=== PATIENT | female | born 1940 | race African-American/Black ===

== ENCOUNTER 2018-10-08 18:03 | Inpatient (IN) ==
[2018-10-08] MEDS ORDERED: NON-FORMULARY MEDICATION 1 EACH EACH (Ipratropium/Albuterol Sulfate [Combivent Respimat 20 IH PRN (18:26)
[2018-10-08] MEDS ORDERED: Benzonatate 100 MG CAPSULE PO PRN (18:26)
[2018-10-08] MEDS ORDERED: Ondansetron ODT 4 MG TAB.RAPDIS SL PRN (18:26)
[2018-10-08] MEDS ORDERED: Ipratropium 1 PUFF INHALER IH PRN (18:26)
[2018-10-08] MEDS ORDERED: NON-FORMULARY MEDICATION 1 EACH EACH (Alendronate Sodium [Fosamax] 70 MG) PO SCH (18:30)
[2018-10-08] MEDS: Apixaban 5 MG TABLET PO SCH (21:28)
[2018-10-08] MEDS: rOPINIRole 1 MG TABLET PO SCH (21:28)
[2018-10-08] MEDS: Gabapentin 300 MG CAPSULE PO SCH (21:28)
[2018-10-08] MEDS: Cefdinir 300 MG CAPSULE PO SCH (21:28)
[2018-10-08] MEDS: *HR* OxyCODONE/APAP 5/325 TABLET PO PRN (21:53)
[2018-10-08] MEDS: Nystatin POWDER 30 GM BOTTLE TP SCH (21:53)
[2018-10-08] MEDS: Gentamicin Oint 15 GM TUBE TP SCH (22:05)
[2018-10-09 06:14] LABS: Basophils % 0.1 %; Eosinophils % 0.1 %; Hematocrit 31.1 % (35.3-44.9); Lymphocytes # 1.8 K/mcL (0.6-4.6); Lymphocytes % 23.4 %; Mean Corpuscular HGB Conc 32.2 g/dL (31.6-35.5); Mean Corpuscular Hemoglobin 34.7 pg (28.0-33.3); Mean Platelet Volume 9.8 fL (9.4-12.4); Monocytes # 0.8 K/mcL (0.0-1.3); Monocytes % 9.8 %; Neutrophils # 5.1 K/mcL (1.6-8.9); Platelet Count 378 K/mcL (140-400); Red Blood Count 2.88 M/mcL (3.82-4.97); Red Cell Distribution Width 14.7 % (11.5-14.5); Segmented Neutrophils % 65.6 %
[2018-10-09 07:12] LABS: BUN/Creatinine Ratio 25 (6-26); Blood Urea Nitrogen 24 mg/dL (8-23); Calcium 9.2 mg/dL (8.6-10.3); Carbon Dioxide 38 mEq/L (23-29); Chloride 94 mEq/L (98-107); Glucose 102 mg/dL (70-105); Osmolality,Calculated 296 (280-300); Potassium 3.7 mEq/L (3.5-5.1); Sodium 141 mEq/L (136-145); eGFR For Non-African Americans 56 (> 60)
[2018-10-09] MEDS ORDERED: Furosemide 40 MG TABLET PO SCH (08:00)
[2018-10-09] MEDS: Cefdinir 300 MG CAPSULE PO SCH ×2 (08:11→20:18)
[2018-10-09] MEDS: levoFLOXacin 500 MG TABLET PO SCH (08:11)
[2018-10-09] MEDS: Ascorbic Acid 500 MG TABLET PO SCH (08:12)
[2018-10-09] MEDS: Folic Acid 1 MG TABLET PO SCH (08:12)
[2018-10-09] MEDS: Apixaban 5 MG TABLET PO SCH ×2 (08:12→20:18)
[2018-10-09] MEDS: Famotidine 20 MG TABLET PO SCH (08:12)
[2018-10-09] MEDS: Cyanocobalamin (B-12) 1,000 MCG TABLET PO SCH (08:12)
[2018-10-09] MEDS: Multivit/Ca/Min/Fe/FA 1 TAB TABLET PO SCH (08:12)
[2018-10-09] MEDS: Nystatin POWDER 30 GM BOTTLE TP SCH ×3 (08:45→20:19)
[2018-10-09] MEDS: Gentamicin Oint 15 GM TUBE TP SCH (08:46)
[2018-10-09] MEDS: Budesonide/Formoterol 160/4.5 1 PUFF INH IH SCH ×2 (10:11→20:43)
--- NOTE | 2018-10-09 12:19 | Internal Med History&Physical ---
Date of Encounter: 10/09/18 Time of Encounter: 11:30 Assessment and Plan (1) Diastolic heart failure with preserved ejection fraction Current visit: No Status: Chronic BN peptide was elevated at 252 on 09/30/2018. Recheck in a.m. Change from Lasix to Bumex and start Imdur. Continue Coreg and Cozaar. (2) COPD (chronic obstructive pulmonary disease) Current visit: No Status: Chronic Continue inhalers, supplemental oxygen, and use BiPAP as needed. Qualifiers: COPD type: COPD with acute exacerbation Qualified Code(s): J44.1 - Chronic obstructive pulmonary disease with (acute) exacerbation (3) Weakness Current visit: Yes Status: Acute PT and OT evaluations have been ordered. (4) Pulmonary nodules/lesions, multiple Current visit: No Status: Acute Follow-up chest CT scan will be done at a later date to monitor resolution. (5) Anemia Current visit: No Status: Chronic Recheck anemia testing in a.m. Qualifiers: Anemia type: other cause Other causes of anemia: chronic disease, other Qualified Code(s): D63.8 - Anemia in other chronic diseases classified elsewhere (6) Pulmonary embolism Current visit: No Status: Acute Continue Eliquis. Qualifiers: Pulmonary embolism type: unspecified Chronicity: unspecified Acute cor pulmonale presence: without acute cor pulmonale Qualified Code(s): I26.99 - Other pulmonary embolism without acute cor pulmonale (7) Decubitus ulcer of ankle, right, unstageable Current visit: No Status: Acute Continue Levaquin and Omnicef until 10/22/2018 and add lactobacillus. Check zinc level. (8) Macrocytosis Current visit: Yes Status: Acute B12, folate, and TSH levels have recently been checked without significant abnormalities. (9) HTN (hypertension) Current visit: No Status: Chronic Continue Coreg, Lasix, and Cozaar Qualifiers: Hypertension type: essential hypertension Qualified Code(s): I10 - Essential (primary) hypertension Internal Medicine - H&P: HPI Chief complaint: Respiratory failure, HFpEF History of present illness: Ms. Alexander is a 78 year old female who was hospitalized at [facility] September 30-October 08 after presenting with acute respiratory insufficiency. Available records show she had been noncompliant previously with prescribed BiPAP. She was treated for respiratory insufficiency. Right heel ulcer grew multiple organisms and she was started on IV antibiotics. She was discharged to [facility] swing bed for ongoing care needs. Past Med Surg Social Fam HX - Past Medical History Medical history: arthritis, atrial fibrillation, CHF, COPD, DVT, hyperlipidemia, hypertension, osteoporosis, pulmonary embolus, RA, renal disease, other Additional medical history: unspecified lung problem Psychiatric history: no psych history - Past Surgical History Surgical History: non-contributory Additional surgical history: back stimulator, carpal tunnel surgery - Social History Smoking Status: Former smoker Smokeless Tobacco Status: No Alcohol use: none Drug use: none - Family History Father Adopted: No Family Member Ethnicity: Non- Living Status: Hx Family Cardiac Disorders: Yes Hx Family Respiratory Disorders: Yes Hx Family Cancer: Yes Hx Family GI Disorders: Yes Hx Family Endocrine Disorder: Yes Hx Family Neuromuscular Disorders: No Hx Family Neurologic Disorders: Yes Hx Family HEENT Disorders: No Hx Family Autoimmune Disorders: Yes (arthritis) Mother Hx Family Cardiac Disorders: Yes (HTN) Internal Medicine - H&P: Meds Budesonide/Formoterol 160/4.5 [Symbicort 160/4.5] 2 puff IH QID PRN 08/11/16 [History] Folic Acid 1 mg PO 0800 08/11/16 [History] Ranitidine HCl [Acid Supervisor Paper Machine] 150 [place] [address]08/11/16 [History] rOPINIRole [Requip] 1 mg PO 199908/11/16 [History] Ipratropium/Albuterol Sulfate [Combivent Respimat 20-100 Mcg] 1 puff IH Q4H PRN 02/20/18 [History] Carvedilol [Coreg] 25 mg PO 799,199904/20/18 [History] Albuterol Sulfate [Proair Hfa] 2 puff IH Q6H PRN 05/16/18 [History] Docusate [Colace] 100 mg PO 0800 05/16/18 [History] Benzonatate [Tessalon] 100 mg PO TID PRN capsule 08/25/18 [Rx] GuaiFENesin ER [Mucinex] 600 mg PO BID PRN tbbp.12hr 08/25/18 [Rx] Ipratropium [ATROVENT Inhaler] 2 puff IH B0SESOW PRN inhaler 08/25/18 [Rx] Acetaminophen [Tylenol] 500 mg PO Q6HR PRN 08/30/18 [History] Alendronate Sodium [Fosamax] 70 mg PO 08/30/18 [History] Potassium Chloride [Klor-Con 10] 10 meq PO 0800 09/13/18 [History] Ascorbate Calcium [Vitamin C] 500 mg PO DAILY 09/15/18 [History] Ca/D3/Mag Ox/Zinc/Teradata Developer/Loyd/Bor [Calcium 600-D3 Plus Caplet] 1 tab PO 0800 09/15/18 [History] Losartan Potassium [Cozaar] 100 mg PO 0800 09/15/18 [History] Multivitamin [Daily Multiple Vitamin] 1 each PO 0800 09/15/18 [History] Ondansetron ODT [Zofran ODT] 4 mg SL Q8HR PRN 09/15/18 [History] Apixaban [Eliquis] 5 mg PO 08,199909/30/18 [History] Cyanocobalamin (Vitamin B-12) [Vitamin B-12] 250 mcg PO 0809/30/18 [History] Furosemide [Lasix] 40 mg PO 0800,1600 09/30/18 [History] Gabapentin [Neurontin] 300 mg PO 199909/30/18 [History] Hydrocortisone 2.5% CREAM [Cortaid] 1 applic TP 999,1999 PRN 09/30/18 [History] Quetiapine Fumarate [Seroquel] 25 mg PO 199909/30/18 [History] Cefdinir [Omnicef] 300 mg PO BID 14 Days #28 capsule 10/08/18 [Rx] Nystatin POWDER [Nystop] 1 appl TP TID bottle 10/08/18 [Rx] OxyCODONE/APAP 5/325 [Percocet 5/325 MG] 1 tab PO Q12H PRN 5 Days #10 tablet 10/08/18 [Rx] levoFLOXacin [Levaquin] 750 mg PO DAILY 14 Days #14 tablet 10/08/18 [Rx] Allergy/AdvReac Type Severity Reaction Status Date / [facility] Allergy See Verified 09/15/18 10:22 Comments All Systems PM: A 10-system review of systems was performed and is negative for pertinent findings except as documented above in the HPI. Review of systems: Gen.: Her weight has been stable at approximately 89 kg since April 2018 hosp [facility] ([facility] Cardiovascular: She has history of hypertension and paroxysmal atrial fibrillation. She has history of DVT. Right upper lung and lower lung pulmonary emboli were seen on chest CTA 08/30/2018. She is on Eliquis. Limited echocardiogram 08/31/2018 showed LVEF of 50-55%. Echocardiogram the previous day showed the interventricular septum and posterior wall thickness measurements 1.18 and 1.37 cm respectively. E/A ratio was 0.6. No significant valvular abnormality was seen. There was no evidence of pulmonary hypertension. Respiratory: She smoked from age [age] never up to one pack per day. She has a diagnosis of COPD and wears oxygen at home 30/12 generally. She has chronic r espiratory failure and has been prescribed BiPAP for use at bedtime and when necessary during day time. She has not been compliant with this regimen according to available hospital records. PFTs 04/29/2018 showed FVC 22% predicted, FEV1 20% predicted, and FEV1/FVC 67%. There was significant impro vement in FEV1 and FVC postbronchodilator. She was diagnosed with very severe obstructive lung disease. GI: She has had cholecystectomy. She denies disorders of her liver or exocrine pancreas : She denies hematuria dysuria or kidney stones Neurologic: She denies large distribution strokes or seizures. Endocrine: She denies diabetes thyroid disease or hyperlipidemia Hematology/oncology: She denies internal malignancies. She was unaware she had anemia in the past. Psychiatric: She denies anxiety depression or other mental health issues. Musko skeletal: She has chronic low back pain and has had a stimulator placed. She has DJD. She has had bilateral total hip replacements and left carpal tunnel surgery. She denies gout. She has an unstageable right heel ulcer and is completing antibiotic therapy for infection. - Constitutional Vitals: Temp Pulse Resp BP Pulse Ox 98.0 F 108 18 110/62 93 10/09/18 07:17 10/09/18 11:31 10/09/18 10:12 10/09/18 07:17 10/09/18 11:31 Exam: Gen.: She is a well-developed overweight female resting comfortably in a chair at bedside HEENT: Head is atraumatic and normocephalic. Eyes: EOMI. There is no scleral icterus. Mouth: Mucosa is moist. Neck: Supple and nontender. There is no thyromegaly or adenopathy noted. Heart: Regular without murmurs gallops or ectopics Lungs: No wheezes or crackles are heard. Abdomen: Soft and nontender. No masses or guarding are noted. Extremities: There is no cyanosis or clubbing noted. The right lower leg and foot are wrapped in gauze with a sock in place. I did not remove these. The legs show 1-2+ edema of the anterior shins and dorsum of the feet bilaterally. She has minimal DJD changes of her hands. Neurologic: Mental status: She is talkative and a good historian. Cranial nerves: Smile is symmetric. Forehead wrinkles bilaterally. Tongue protrudes midline. EOMI. Motor: There is no pronator drift. Cerebellar: Finger to nose is intact bilaterally. Skin: Warm and dry Internal Med - H&P Results - Labs CBC & Chem 7: 10/09/18 05:44 10/09/18 05:44 Labs: Short CBC 10/09/18 Range/Units 05:44 WBC 7.8 (4.3-11.1) K/mcL Hgb 10.0 L (11.5-15.4) g/dL Hct 31.1 L (35.3-44.9) % Plt Count 378 (140-400) K/mcL Neutrophils # 5.1 (1.6-8.9) K/mcL BMP 10/09/18 05:44 Sodium 141 Potassium 3.7 Chloride 94 L Carbon Dioxide 38 H BUN 24 H Creatinine 0.96 Glucose 102 Calcium 9.2
[2018-10-09] MEDS: Albuterol 2.5 MG/3 ML NEBULIZER IH PRN ×2 (15:42→20:43)
[2018-10-09] MEDS: Lactobacillus 1 EACH CAP.SPRINK PO SCH (20:18)
[2018-10-09] MEDS: Gabapentin 300 MG CAPSULE PO SCH (20:18)
[2018-10-09] MEDS: rOPINIRole 1 MG TABLET PO SCH (20:18)
[2018-10-09] MEDS: Bumetanide 1 MG TABLET PO SCH (20:18)
[2018-10-09] MEDS: *HR* OxyCODONE/APAP 5/325 TABLET PO PRN (21:26)
[2018-10-10] MEDS: Folic Acid 1 MG TABLET PO SCH (09:21)
[2018-10-10] MEDS: Famotidine 20 MG TABLET PO SCH (09:21)
[2018-10-10] MEDS: Multivit/Ca/Min/Fe/FA 1 TAB TABLET PO SCH (09:21)
[2018-10-10] MEDS: Bumetanide 1 MG TABLET PO SCH ×2 (09:21→20:23)
[2018-10-10] MEDS: levoFLOXacin 500 MG TABLET PO SCH (09:21)
[2018-10-10] MEDS: Cyanocobalamin (B-12) 1,000 MCG TABLET PO SCH (09:22)
[2018-10-10] MEDS: Lactobacillus 1 EACH CAP.SPRINK PO SCH ×2 (09:22→20:23)
[2018-10-10] MEDS: Cefdinir 300 MG CAPSULE PO SCH ×2 (09:22→20:23)
[2018-10-10] MEDS: Ascorbic Acid 500 MG TABLET PO SCH (09:22)
[2018-10-10] MEDS: Apixaban 5 MG TABLET PO SCH ×2 (09:23→20:23)
[2018-10-10] MEDS: *HR* OxyCODONE/APAP 5/325 TABLET PO PRN (09:23)
[2018-10-10] MEDS: Gentamicin Oint 15 GM TUBE TP SCH (09:24)
[2018-10-10] MEDS: Nystatin POWDER 30 GM BOTTLE TP SCH ×3 (09:24→20:25)
[2018-10-10 09:26] LABS: % Iron Saturation 22 % (15-50); Iron 65 mcg/dL (50-170); Transferrin 212 mg/dL (203-362)
[2018-10-10] MEDS: Budesonide/Formoterol 160/4.5 1 PUFF INH IH SCH ×2 (09:43→20:59)
[2018-10-10 09:44] LABS: Ferritin 82 ng/mL (10-120)
[2018-10-10] MEDS: Albuterol 2.5 MG/3 ML NEBULIZER IH PRN ×2 (13:51→20:59)
--- NOTE | 2018-10-10 16:13 | Internal Med Progress Note ---
Date of Encounter: 10/10/18 Time of Encounter: 16:00 - Assessment and plan (1) Diastolic heart failure with preserved ejection fraction Current Visit: No Status: Chronic Assessment and plan: October 10. BN now peptide normal at 93. Continue Bumex, Imdur, Coreg, and Cozaar (2) COPD (chronic obstructive pulmonary disease) Current Visit: No Status: Chronic Assessment and plan: October 10. Continue inhalers, oxygen, and BiPAP. Qualifiers: COPD type: COPD with acute exacerbation Qualified Code(s): J44.1 - Chronic obstructive pulmonary disease with (acute) exacerbation (3) Weakness Current Visit: Yes Status: Acute Assessment and plan: October 10. Continue PT and OT intervention. (4) Pulmonary nodules/lesions, multiple Current Visit: No Status: Acute Assessment and plan: October 10. Chest CTA 08/30/2018 showed multiple scattered nonspecific subcentimeter pulmonary nodules throughout both lungs. Repeat chest CT can be done as an outpatient in 3-6 months. (5) Anemia Current Visit: No Status: Chronic Assessment and plan: October 10. Anemia testing shows iron 65, transferrin saturation 20%, transferrin 212, and ferritin 82. B12 and folate levels in August were above normal range. Continue to monitor CBC periodically. Qualifiers: Anemia type: other cause Other causes of anemia: chronic disease, other Qualified Code(s): D63.8 - Anemia in other chronic diseases classified elsewhere (6) Pulmonary embolism Current Visit: No Status: Acute Assessment and plan: October 10. Continue Eliquis Qualifiers: Pulmonary embolism type: unspecified Chronicity: unspecified Acute cor pulmonale presence: without acute cor pulmonale Qualified Code(s): I26.99 - Other pulmonary embolism without acute cor pulmonale (7) Decubitus ulcer of ankle, right, unstageable Current Visit: No Status: Acute Assessment and plan: October 10. Continue Levaquin and Omnicef with lactobacillus until 10/22/2018. Zinc level is pending (8) Macrocytosis Current Visit: Yes Status: Acute Assessment and plan: October 10. B12 folate and TSH levels unremarkable. Continue to monitor. (9) HTN (hypertension) Current Visit: No Status: Chronic Assessment and plan: October 10. Continue Coreg, Lasix, and Cozaar Qualifiers: Hypertension type: essential hypertension Qualified Code(s): I10 - Essential (primary) hypertension - Subjective Interval history: October 10. She has no new complaints. - Constitutional Vitals: Temp Pulse Resp BP Pulse Ox 96.6 F L 80 14 147/74 97 10/10/18 07:33 10/10/18 07:33 10/10/18 13:51 10/10/18 07:33 10/10/18 13:51 Exam: She is sitting in a chair at bedside resting comfortably. Her feet are elevated. Extremities show trace to 1+ edema bilaterally. She is not dyspneic. I reviewed her medications and lab results. Internal Medicine: Result - Labs CBC & Chem 7: 10/09/18 05:44 10/09/18 05:44 Consult Discharge Plan - Plan Referrals: Frances Almaguer MD [Primary Care Provider] - 1 week
[2018-10-10] MEDS: Gabapentin 300 MG CAPSULE PO SCH (20:23)
[2018-10-10] MEDS: rOPINIRole 1 MG TABLET PO SCH (20:24)
[2018-10-11] MEDS: *HR* OxyCODONE/APAP 5/325 TABLET PO PRN ×2 (05:32→20:55)
[2018-10-11] MEDS: Lactobacillus 1 EACH CAP.SPRINK PO SCH ×2 (10:23→20:54)
[2018-10-11] MEDS: Cefdinir 300 MG CAPSULE PO SCH ×2 (10:23→20:54)
[2018-10-11] MEDS: Bumetanide 1 MG TABLET PO SCH ×2 (10:24→20:54)
[2018-10-11] MEDS: Multivit/Ca/Min/Fe/FA 1 TAB TABLET PO SCH (10:24)
[2018-10-11] MEDS: Cyanocobalamin (B-12) 1,000 MCG TABLET PO SCH (10:24)
[2018-10-11] MEDS: Folic Acid 1 MG TABLET PO SCH (10:24)
[2018-10-11] MEDS: Ascorbic Acid 500 MG TABLET PO SCH (10:24)
[2018-10-11] MEDS: Famotidine 20 MG TABLET PO SCH (10:24)
[2018-10-11] MEDS: Apixaban 5 MG TABLET PO SCH ×2 (10:25→20:55)
[2018-10-11] MEDS: Nystatin POWDER 30 GM BOTTLE TP SCH ×3 (10:25→20:57)
[2018-10-11] MEDS: Gentamicin Oint 15 GM TUBE TP SCH (10:25)
[2018-10-11] MEDS: Budesonide/Formoterol 160/4.5 1 PUFF INH IH SCH ×2 (10:50→22:13)
[2018-10-11] MEDS: Albuterol 2.5 MG/3 ML NEBULIZER IH PRN (10:55)
[2018-10-11] MEDS: levoFLOXacin 500 MG TABLET PO SCH (12:16)
[2018-10-11] MEDS: Mag Hydrox/Al Hydrox/Simeth 30 ML UDC PO PRN (16:57)
[2018-10-11] MEDS: rOPINIRole 1 MG TABLET PO SCH (20:54)
[2018-10-11] MEDS: Gabapentin 300 MG CAPSULE PO SCH (20:55)
[2018-10-12 05:18] LABS: ABG Base Excess 18 mEq/L (-2 to 3); ABG HCO3 47 mEq/L (21-27); ABG Oxygen Saturation 94 % (95-98); ABG PCO2 88 mmHg (35-45); ABG PH 7.33 pH Units (7.32-7.45); ABG PO2 82 mmHg (85-104); ABG TCO2 50 mEq/L (20-26)
[2018-10-12] MEDS: Bumetanide 1 MG TABLET PO SCH ×2 (08:23→21:09)
[2018-10-12] MEDS: Apixaban 5 MG TABLET PO SCH ×2 (08:23→21:19)
[2018-10-12] MEDS: Cefdinir 300 MG CAPSULE PO SCH ×2 (08:23→21:09)
[2018-10-12] MEDS: Cyanocobalamin (B-12) 1,000 MCG TABLET PO SCH (08:23)
[2018-10-12] MEDS: Lactobacillus 1 EACH CAP.SPRINK PO SCH ×2 (08:23→21:09)
[2018-10-12] MEDS: Famotidine 20 MG TABLET PO SCH (08:24)
[2018-10-12] MEDS: Ascorbic Acid 500 MG TABLET PO SCH (08:24)
[2018-10-12] MEDS: Folic Acid 1 MG TABLET PO SCH (08:24)
[2018-10-12] MEDS: Multivit/Ca/Min/Fe/FA 1 TAB TABLET PO SCH (08:24)
[2018-10-12] MEDS: Budesonide/Formoterol 160/4.5 1 PUFF INH IH SCH ×2 (09:33→23:09)
--- NOTE | 2018-10-12 11:50 | Internal Med Progress Note ---
Date of Encounter: 10/12/18 Time of Encounter: 11:30 - Assessment and plan (1) Diastolic heart failure with preserved ejection fraction Current Visit: No Status: Chronic Assessment and plan: October 10. BN now peptide normal at 93. Continue Bumex, Imdur, Coreg, and Cozaar (2) COPD (chronic obstructive pulmonary disease) Current Visit: No Status: Chronic Assessment and plan: October 10. Continue inhalers, oxygen, and BiPAP. October 12. I explained to the family that elevated oxygen could decrease her respiratory drive. Order will be written for saturations to be 89-91%. I reviewed blood gases since February 2018 with 36/37 showing elevated PCO2. The PCO2 levels exceeded 100 approximately 2 weeks ago. I explained to family that worsening respiratory status could potentially result in placement of tracheostomy with ventilator dependency. Qualifiers: COPD type: COPD with acute exacerbation Qualified Code(s): J44.1 - Chronic obstructive pulmonary disease with (acute) exacerbation (3) Weakness Current Visit: Yes Status: Acute Assessment and plan: October 10. Continue PT and OT intervention. (4) Pulmonary nodules/lesions, multiple Current Visit: No Status: Acute Assessment and plan: October 10. Chest CTA 08/30/2018 showed multiple scattered nonspecific subcentimeter pulmonary nodules throughout both lungs. Repeat chest CT can be done as an outpatient in 3-6 months. (5) Anemia Current Visit: No Status: Chronic Assessment and plan: October 10. Anemia testing shows iron 65, transferrin saturation 20%, transferrin 212, and ferritin 82. B12 and folate levels in August were above normal range. Continue to monitor CBC periodically. Qualifiers: Anemia type: other cause Other causes of anemia: chronic disease, other Q ualified Code(s): D63.8 - Anemia in other chronic diseases classified elsewhere (6) Pulmonary embolism Current Visit: No Status: Acute Assessment and plan: October 10. Continue Eliquis Qualifiers: Pulmonary embolism type: unspecified Chronicity: unspecified Acute cor pulmonale presence: without acute cor pulmonale Qualified Code(s): I26.99 - Other pulmonary embolism without acute cor pulmonale (7) Decubitus ulcer of ankle, right, unstageable Current Visit: No Status: Acute Assessment and plan: October 10. Continue Levaquin and Omnicef with lactobacillus until 10/22/2018. Zinc level is pending October 12. The right heel ulcer appears healed. The right posterior lower calf area shows white exudate with no evidence of significant infection or drainage. There is no foul odor detected. Continue Santyl and gentamicin as per wound clinic orders. Family reports a follow-up visit with wound clinic is scheduled on October 14. (8) Macrocytosis Current Visit: Yes Status: Acute Assessment and plan: October 10. B12 folate and TSH levels unremarkable. Continue to monitor. (9) HTN (hypertension) Current Visit: No Status: Chronic Assessment and plan: October 10. Continue Coreg, Lasix, and Cozaar Qualifiers: Hypertension type: essential hypertension Qualified Code(s): I10 - Essential (primary) hypertension - Subjective Interval history: October 10. She has no new complaints. October 12. She has no new complaints. Family reported she had "jerking" over the past 2 days. I was told by nursing staff family was concerned it might be due to Levaquin and/or elevated pCO2. Levaquin was discontinued after review of culture sensitivity from her left heel. I felt was possible that Cedinir would cover the Pseudomonas since the organism was sensitive to cefepime and ceftazidime. ABG was done per family request. - Constitutional Vitals: Temp Pulse Resp BP Pulse Ox 99.9 F H 88 92 134/68 94 10/12/18 06:22 10/12/18 06:22 10/12/18 06:22 10/12/18 06:22 10/12/18 05:33 Exam: She is resting in bed wearing BiPAP. She had a 2-3 second episode of her arms shaking without any other movement to indicate seizures. Within a few seconds after shaking she opened her eyes and talked plainly through the BiPAP mask. She reports she has felt cold earlier but did not feel cold at this time. The right lower leg dressing was removed and the heel Allevyn removed for visualization. I reviewed reviewed her medications and lab results. Internal Medicine: Result - Labs CBC & Chem 7: 10/09/18 05:44 10/09/18 05:44 - ABG Interpretation ABG results: ABG ABG pH 7.33 pH Units (7.32-7.45) 10/12/18 05:12 ABG pCO2 88 mmHg (35-45) H* 10/12/18 05:12 ABG pO2 82 mmHg (85-104) L 10/12/18 05:12 ABG O2 Saturation 94 % (95-98) L 10/12/18 05:12 Consult Discharge Plan - Plan Referrals: Frances Almaguer MD [Primary Care Provider] - 1 week
[2018-10-12] MEDS: Nystatin POWDER 30 GM BOTTLE TP SCH ×3 (12:51→21:19)
[2018-10-12] MEDS: Gentamicin Oint 15 GM TUBE TP SCH (12:51)
[2018-10-12 13:49] LABS: ABG Base Excess 15 mEq/L (-2 to 3); ABG HCO3 45 mEq/L (21-27); ABG Oxygen Saturation 72 % (95-98); ABG PCO2 87 mmHg (35-45); ABG PH 7.33 pH Units (7.32-7.45); ABG PO2 44 mmHg (85-104); ABG TCO2 48 mEq/L (20-26)
[2018-10-12] MEDS: Mag Hydrox/Al Hydrox/Simeth 30 ML UDC PO PRN (21:09)
[2018-10-12] MEDS: rOPINIRole 1 MG TABLET PO SCH (21:09)
[2018-10-12] MEDS: Gabapentin 300 MG CAPSULE PO SCH (21:09)
[2018-10-13 05:13] LABS: ABG Base Excess 17 mEq/L (-2 to 3); ABG HCO3 48 mEq/L (21-27); ABG Oxygen Saturation 91 % (95-98); ABG PCO2 91 mmHg (35-45); ABG PH 7.33 pH Units (7.32-7.45); ABG PO2 70 mmHg (85-104); ABG TCO2 > 50 mEq/L (20-26)
[2018-10-13 06:06] LABS: Basophils # 0.1 K/mcL (0.0-0.2); Basophils % 0.6 %; Eosinophils # 0.1 K/mcL (0.0-0.6); Eosinophils % 0.8 %; Hematocrit 33.6 % (35.3-44.9); Immature Granulocytes % 0.8 % (0-4); Lymphocytes # 2.7 K/mcL (0.6-4.6); Lymphocytes % 34.3 %; Mean Corpuscular HGB Conc 29.8 g/dL (31.6-35.5); Mean Corpuscular Hemoglobin 35.3 pg (28.0-33.3); Mean Corpuscular Volume 118.7 fL (83.0-100.0); Mean Platelet Volume 10.1 fL (9.4-12.4); Monocytes % 12.3 %; Neutrophils # 4.1 K/mcL (1.6-8.9); Platelet Count 277 K/mcL (140-400); Red Blood Count 2.83 M/mcL (3.82-4.97); Red Cell Distribution Width 14.6 % (11.5-14.5); Segmented Neutrophils % 51.2 %
[2018-10-13 06:30] LABS: Albumin 3.3 g/dL (3.5-5.7); Albumin/Globulin Ratio 1.2 (1.1-2.2); Bilirubin,Total 0.3 mg/dL (0.3-1.0); Calcium 9.1 mg/dL (8.6-10.3); Globulin 2.7 g/dL (2.4-3.5); Potassium 4.7 mEq/L (3.5-5.1)
[2018-10-13] MEDS ORDERED: Acetaminophen 325 MG TABLET PO PRN (08:00)
[2018-10-13 08:05] LABS: Anisocytosis 1+ (Not Present); Macrocytosis Present (Not Present); Platelet Estimate Normal (Normal)
[2018-10-13] MEDS: Apixaban 5 MG TABLET PO SCH (08:24)
[2018-10-13] MEDS: Bumetanide 1 MG TABLET PO SCH (08:25)
[2018-10-13] MEDS: Lactobacillus 1 EACH CAP.SPRINK PO SCH (08:26)
[2018-10-13] MEDS: Famotidine 20 MG TABLET PO SCH (08:26)
[2018-10-13] MEDS: Cefdinir 300 MG CAPSULE PO SCH (08:26)
[2018-10-13] MEDS: Multivit/Ca/Min/Fe/FA 1 TAB TABLET PO SCH (08:26)
[2018-10-13] MEDS: Budesonide/Formoterol 160/4.5 1 PUFF INH IH SCH (10:13)
[2018-10-13 11:06] VITALS: BP 111/53
--- NOTE | 2018-10-13 13:40 | Discharge Summary ---
Date of Encounter: 10/13/18 Time of Encounter: 10:00 - Discharge Diagnosis (1) COPD (chronic obstructive pulmonary disease) Priority: Primary Status: Chronic Qualifiers: COPD type: COPD with acute exacerbation Qualified Code(s): J44.1 - Chronic obstructive pulmonary disease with (acute) exacerbation (2) Diastolic heart failure with preserved ejection fraction Priority: Secondary Status: Chronic (3) Weakness Priority: Secondary Status: Acute (4) Pulmonary nodules/lesions, multiple Priority: Secondary Status: Acute (5) Anemia Priority: Secondary Status: Chronic Qualifiers: Anemia type: other cause Other causes of anemia: chronic disease, other Qualified Code(s): D63.8 - Anemia in other chronic diseases classified elsewhere (6) Pulmonary embolism Priority: Secondary Status: Acute Qualifiers: Pulmonary embolism type: unspecified Chronicity: unspecified Acute cor pulmonale presence: without acute cor pulmonale Qualified Code(s): I26.99 - Other pulmonary embolism without acute cor pulmonale (7) Decubitus ulcer of ankle, right, unstageable Priority: Secondary Status: Acute (8) Macrocytosis Priority: Secondary Status: Acute (9) HTN (hypertension) Priority: Secondary Status: Chronic Qualifiers: Hypertension type: essential hypertension Qualified Code(s): I10 - Essential (primary) hypertension Hospital course: Ms. Alexander is a 78 year old female who was hospitalized at [facility] September 30-October 08 after presenting with acute respiratory insufficiency. Available records show she had been noncompliant previously with prescribed BiPAP. She was treated for respiratory insufficiency. Right heel ulcer grew multiple organisms and she was started on IV antibiotics. She was discharged to [facility] swing bed for ongoing care needs. Initial orders were written by the discharging physician at [facility]. I saw her on October 09 and performed the swing bed history and physical. He was changed from Lasix to Bumex. Imdur was started. Coreg and Cozaar were continued. Her BN peptide improved to 93 by 10/10/2018. She continue this regimen during the regular her hospital stay. She developed respiratory insufficiency requiring increasing time on BiPAP. I had long discussions with the family the afternoon of October 12 and the morning of October 13. I told them she would likely benefit from pulmonology reevaluation with consideration for trach placement and home ventilator use. There were in agreement with this and she was transferred [facility] the afternoon of October 13. - Time Spent with Patient Total time spent providing and/or coordinating discharge services: - Discharge Medications Prescriptions: No Action Folic Acid 1 mg PO 0800 rOPINIRole [Requip] 1 mg PO 1999 Ranitidine HCl [Acid Treasury Representative] 150 mg PO 0800 Budesonide/Formoterol 160/4.5 [Symbicort 160/4.5] 2 puff IH QID PRN PRN Reason: Shortness Of Breath Ipratropium/Albuterol Sulfate [Combivent Respimat 20-100 Mcg] 1 puff IH Q4H PRN PRN Reason: Shortness Of Breath Carvedilol [Coreg] 25 mg PO 0800,1999 Albuterol Sulfate [Proair Hfa] 2 puff IH Q6H PRN PRN Reason: Shortness Of Breath Docusate [Colace] 100 mg PO 0800 Ipratropium [ATROVENT Inhaler] 2 puff IH [id number] PRN inhaler PRN Reason: Shortness Of Breath/Wheezing Benzonatate [Tessalon] 100 mg PO TID PRN capsule PRN Reason: Cough GuaiFENesin ER [Mucinex] 600 mg PO BID PRN tbbp.12hr PRN Reason: Congestion Alendronate Sodium [Fosamax] 70 mg PO TH Acetaminophen [Tylenol] 500 mg PO Q6HR PRN PRN Reason: Mild Pain Potassium Chloride [Klor-Con 10] 10 meq PO 0800 Ascorbate Calcium [Vitamin C] 500 mg PO DAILY Ca/D3/Mag Ox/Zinc/Student Teacher/Loyd/Bor [Calcium 600-D3 Plus Caplet] 1 tab PO 0800 Losartan Potassium [Cozaar] 100 mg PO 0800 Multivitamin [Daily Multiple Vitamin] 1 each PO 0800 Ondansetron ODT [Zofran ODT] 4 mg SL Q8HR PRN PRN Reason: Nausea Apixaban [Eliquis] 5 mg PO 0800,1999 Cyanocobalamin (Vitamin B-12) [Vitamin B-12] 250 mcg PO 0800 Furosemide [Lasix] 40 mg PO 0800,1600 Gabapentin [Neurontin] 300 mg PO 1999 Hydrocortisone 2.5% CREAM [Cortaid] 1 applic TP 999,1999 PRN PRN Reason: IRRITATION Quetiapine Fumarate [Seroquel] 25 mg PO 1999 levoFLOXacin [Levaquin] 750 mg PO DAILY 14 Days #14 tablet Cefdinir [Omnicef] 300 mg PO BID 14 Days #28 capsule Nystatin POWDER [Nystop] 1 appl TP TID bottle Home Medications: Budesonide/Formoterol 160/4.5 [Symbicort 160/4.5] 2 puff IH QID PRN 08/11/16 [History] [place]olic [place] 7[address]08/11/16 [History] Ranitidine HCl [Acid Treasury Representative] 150 mg PO 79908/11/16 [History] rOPINIRole [Requip] 1 mg PO 199908/11/16 [History] Ipratropium/Albuterol Sulfate [Combivent Respimat 20-100 Mcg] 1 puff IH Q4H PRN 02/20/18 [History] Carvedilol [Coreg] 25 mg PO 799,199904/20/18 [History] Albuterol Sulfate [Proair Hfa] 2 puff IH Q6H PRN 05/16/18 [History] Docusate [Colace] [place] 79905/16/18 [History] Benzonatate [Tessalon] 100 mg PO TID PRN capsule 08/25/18 [Rx] GuaiFENesin ER [Mucinex] 600 mg PO BID PRN tbbp.12hr 08/25/18 [Rx] Ipratropium [ATROVENT Inhaler] 2 puff IH [id number] PRN inhaler 08/25/18 [Rx] Acetaminophen [Tylenol] 500 mg PO Q6HR PRN 08/30/18 [History] Alendronate Sodium [Fosamax] 70 mg PO TH 08/30/18 [History] Potassium Chloride [Klor-Con 10] 10 meq PO 0800 09/13/18 [History] Ascorbate Calcium [Vitamin C] 500 mg PO DAILY 09/15/18 [History] Ca/D3/Mag Ox/Zinc/Student Teacher/Loyd/Bor [Calcium 600-D3 Plus Caplet] 1 tab PO 0800 09/15/18 [History] Losartan Potassium [Cozaar] 100 mg PO 00 09/15/18 [History] Multivitamin [Daily Multiple Vitamin] 1 each PO 0800 09/15/18 [History] Ondansetron ODT [Zofran ODT] 4 mg SL Q8HR PRN 09/15/18 [History] Apixaban [Eliquis] 5 mg PO 799,199909/30/18 [History] Cyanocobalamin (Vitamin B-12) [Vitamin B-12] 250 mcg PO 0800 09/30/18 [History] Furosemide [Lasix] 40 mg PO 0800,1600 09/30/18 [History] Gabapentin [Neurontin] 300 mg PO 199909/30/18 [History] Hydrocortisone 2.5% CREAM [Cortaid] 1 applic TP 999,1999 PRN 09/30/18 [History] Quetiapine Fumarate [Seroquel] 25 mg PO 199909/30/18 [History] Cefdinir [Omnicef] 300 mg PO BID 14 Days #28 capsule 10/08/18 [Rx] Nystatin POWDER [Nystop] 1 appl TP TID bottle 10/08/18 [Rx] levoFLOXacin [Levaquin] 750 mg PO DAILY 14 Days #14 tablet 10/08/18 [Rx] Allergies/Adverse Reactions: Allergy/AdvReac Type Severity Reaction Status Date / Time amlodipine [From [facility]] Allergy See Verified 09/15/18 10:22 Comments Date of admission: 10/08/18 19:51 Primary care physician: Frances Almaguer Consults: 10/08/18 18:40 Consult to Registered Nurses [CONS] Routine Reason for SW Consult: discharge planning 10/08/18 18:42 Consult to Physical Therapy [CONS] Routine Comment: Evaluate, develop and implement POC Reason for Consult: from e[facility] will need to return at skilled level Does patient have active BEDREST order?: No Is patient medically & hemodynamically stable?: Yes Patient assessed for mobility or mobilized this visit?: Yes OT [Consult to Occupational Therapy] [CONS] Routine Comment: Evaluate, develop and implement POC Reason for Consult: from [facility] will need to return at skilled level Does patient have active BEDREST order?: No Is patient medically & hemodynamically stable?: Yes Patient assessed for mobility or mobilized this visit?: Yes - Constitutional Vitals: Temp Pulse Resp BP Pulse Ox 99.4 F 86 16 111/53 90 10/13/18 11:05 10/13/18 11:05 10/13/18 11:05 10/13/18 11:05 10/13/18 11:05 - Patient Status Disposition: Transfer Other - Discharge Instructions
== END 2018-10-13 14:06 | disposition other institution (70) | DRG 945 ==
LOC: INPPIK 19:51
PROVIDERS: ADMIT Internal Medicine; ATTEND Internal Medicine